=== PATIENT | female | born 1930 | race Caucasian/White ===

== ENCOUNTER 2016-08-08 20:05 | Observation (INO) | payer OTHER ==
--- NOTE | ~2016-08-08 | HP ---
History And Physical [place] [id number] [facility] [place]. [address] NAME: MARYLOU WEINSTEIN V : 32 STATUS : ADM Lynette PAT#: [id number] AGE: 86 ADM/REG DATE : 08/08/16 MR#: [id number] REPORT SERV DATE: 08/09/16 DICTATED BY: MARE WALKER DATE: 08/09/16 REPORT STATUS : Draft TRANSCRIBED BY: MODL DATE: 08/09/16 DATE OF ADMISSION: 08/08/2016 PRIMARY CARE PROVIDER: Harsha Nieves M.D. METAL ENGRAVER: Kacie Malloy M.D. CHIEF COMPLAINT: Atypical chest pain. HISTORY OF PRESENT ILLNESS: A very pleasant 86-year-old white female with no known history of CAD, but followed by Dr. Malloy for NICM with most recent EF of 55% in 08/2015. The patient states that on 08/08/2016 around 1730 hours, she experienced "real bad pain" indicating her mid chest and near her xiphoid while sitting on the cough. She describes associated shortness of breath, nausea, diaphoresis, and dizziness. She denies any belching. At its most intensive the chest pain was rated at 10/10. At the time of interview in the CPOU she is pain-free. The episode lasted approximately 10 minutes in duration. She did take one full dose aspirin prior to coming to the hospital. She was driven here by family members. She denies any exertional component. No stressful argument or confrontational interaction. The patient denies any personal history of myocardial infarction, stroke, DVT, or pulmonary embolus. The patient treated for the flu one month ago. Denies palpitations. No syncopal episodes. Denies PND or orthopnea. PAST MEDICAL HISTORY: 1. NICM with an EF of 55% by echo in 08/2015. 2. Hypertension. 3. Cholesterol, followed by PCP and reportedly "good.". 4. AODM. 5. Hypothyroid, on replacement. 6. Anxiety. 7. GERD. 8. COPD. 9. Sleep apnea, on 2 L nasal cannula at night. 10.Remote tobacco abuse. PAST SURGICAL HISTORY: 1. Cholecystectomy. 2. Hysterectomy. 3. Bladder tack. 4. Appendectomy. SOCIAL HISTORY: She is with three children. 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 Does not have an exercise routine. Quit smoking in 1980. Denies alcohol or illicits. FAMILY HISTORY: Mother of a heart attack at 76 with a history of congestive heart History And Physical [place] [id number] [facility] [place]. [address] NAME: MARYLOU WEINSTEIN V : 32 STATUS : ADM Lynette PAT#: [id number] AGE: 86 ADM/REG DATE : 08/08/16 MR#: [id number] REPORT SERV DATE: 08/09/16 DICTATED BY: MARE WALKER DATE: 08/09/16 REPORT STATUS : Draft TRANSCRIBED BY: MODAmerica DATE: 08/09/16 failure. Otherwise, no embolic events reported in first-degree relatives. REVIEW OF SYSTEMS: A 14-point review of systems performed, significant for HPI including home blood sugars of 90 to 120 and the patient does not check her blood pressure. Otherwise, complete review of systems obtained and negative. ALLERGIES: NO KNOWN DRUG ALLERGIES. HOME MEDICATIONS: 1. Proventil p.r.n. 2. Albuterol nebulizer four times daily p.r.n. 3. Amlodipine 5 mg daily. 4. Aspirin 325 mg daily. 5. Coreg 25 mg twice daily. 6. Chlorthalidone 25 mg daily. 7. Celexa 20 mg nightly. 8. Lanoxin 125 mcg daily. 9. Joceline 180 mg daily. 10.Flonase spray p.r.n. 11.Breo Ellipta 10/ daily. 12.Lasix 40 mg with lunch. 13.Glimepiride 4 mg daily. 14.Levothyroxine 125 mcg daily. 15.Metformin 1000 mg twice daily. 16.Prilosec 40 mg nightly. 17.Nasal spray p.r.n. 18.Aldactone 12.5 mg Thursday, Thursday, and Thursday at lunch. 19.Spiriva one capsule nightly. PHYSICAL EXAMINATION: BLOOD PRESSURE: Bilateral blood pressures on arrival, right 160/72, left 153/70, this morning 146/64. PULSE: 57. RESPIRATORY RATE: 16. TEMPERATURE: 97.7. O2 saturation 97% on room air. HEIGHT: 5 feet 2 inches. WEIGHT: 186 pounds. BMI: 34. GENERAL: Cooperative, in no apparent distress. HEENT: Pupils 2 mm. Sclera nonicteric. Nares patent. Moist mucous membranes. No xanthelasma. NECK: Trachea midline. No thyromegaly. No JVD. No bruits. LYMPH: No cervical lymphadenopathy. No supraclavicular lymphadenopathy. RESPIRATORY: Unlabored respirations. Breath sounds clear bilaterally to posterior auscultation. No wheezes or rhonchi. CARDIOVASCULAR: Regular rate. No murmur, rub or gallop appreciated. Extremities trace to 1+ ankle edema. Pulses 2+ bilaterally. ABDOMEN: Soft, nontender, and nondistended. Normal bowel sounds auscultated throughout. No organomegaly. SKIN: Warm and dry extremities. No pallor or cyanosis. PSYCHIATRIC: Appropriate affect. Alert and oriented x3. History And Physical [address] [address] NAME: MARYLOU WEINSTEIN V : 32 STATUS : ADM Lynette PAT#: [id number] AGE: 86 ADM/REG DATE : 08/08/16 MR#: [id number] REPORT SERV DATE: 08/09/16 DICTATED BY: MARE WALKER DATE: 08/09/16 REPORT STATUS : Draft TRANSCRIBED BY: OAPL DATE: 08/09/16 LABORATORY DATA: Troponin less than 0.02 x3. Potassium 4.5, BUN 23, creatinine 1.28, glucose 119. Magnesium 2.2. Digoxin level less than 0.1. WBC 6.7, hemoglobin 12.3, hematocrit 38.7, and platelet count 263,000. EKG sinus rhythm with nonspecific T-waves. Echo 08/2015: EF 55%. Mild pulmonary hypertension. MPI 08/2015: No ischemia. ASSESSMENT AND PLAN: 1. Chest pain in patient with multiple risk factors. The patient has been observed in the CPOU overnight to rule out myocardial infarction with serial enzymes and serial EKGs, and held n.p.o. We will proceed with MPI today most likely vasodilators stress test. The patient will be discharged home if low risk, no ischemia. If anything suggestive of ischemia, Cardiology referral will be initiated. Otherwise, the patient will be asked to follow up her PCP and Dr. Malloy as warranted or previously scheduled. 2. Nonischemic cardiomyopathy with the ejection fraction 55% in 08/2015. Continue home medications. 3. Hypertension. Monitor blood pressure and continue home medications. 4. Adult-onset diabetes mellitus. Hold metformin level 1 sliding scale correction. 5. Chronic obstructive pulmonary disease. Continue home medications as warranted. BRAYDEN/MODL Mare Walker MSN, [facility] CONSULTANT-BC / [id number] CC: Mare Walker MSN, [employer] CONSULTANT-BC Abe Black M.D.
[2016-08-08 19:25] LABS: BASOPHILS 0.3 %; BASOPHILS ABSOLUTE 0.02 10/3/uL (0.0-0.16); EOSINOPHILS 6.7 %; EOSINOPHILS ABSOLUTE 0.45 10/3/uL (0.0-0.53); HEMATOCRIT 38.7 % (36.0-48.0); HEMOGLOBIN 12.3 g/dL (12.0-16.0); IMMATURE GRANULOCYTES 0.1 %; IMMATURE GRANULOCYTES ABSOLUTE 0.01 10/3/uL (0.0-0.11); LYMPHOCYTES 18.3 %; LYMPHOCYTES ABSOLUTE 1.22 10/3/uL (0.67-4.30); MEAN CORPUS HGB CONC 31.8 g/dL (32.0-36.0); MEAN CORPUSCULAR HEMOGLOB 27.5 pg (26.0-34.0); MEAN CORPUSCULAR VOLUME 86.4 fL (80-100); MEAN PLATELET VOLUME 9.3 fL (9.2-13.0); MONOCYTES 10.8 %; MONOCYTES ABSOLUTE 0.72 10/3/uL (0.21-1.20); NEUTROPHILS 63.8 %; NEUTROPHILS ABSOLUTE 4.26 10/3/uL (2.02-8.40); PLATELET COUNT 263 10/3/uL (150-400); RBC DISTRIBUTION WIDTH 15.6 % (12.0-16.0); RED CELL COUNT 4.48 10/6/uL (4.0-5.6); WHITE BLOOD CELLS 6.7 10/3/uL (4.5-10.5)
[2016-08-08 19:26] LABS: MANUAL DIFF NO %
[2016-08-08 19:34] LABS: PARTIAL THROMBO TIME 25.8 SEC (22.5-37.2)
[2016-08-08 19:41] LABS: BUN (BLOOD UREA NITROGEN) 23 MG/DL (6-23); CALCIUM, SERUM 9.3 MG/DL (8.5-10.4); CHEST PAIN PROFILE TAT 0 Hrs 20 Mins; CHLORIDE, SERUM 105 MMOL/L (96-112); CO2 (CARBON DIOXIDE) 31 MMOL/L (24-34); CREATININE 1.28 MG/DL (0.55-1.02); GFR AFRICAN AMERICAN 44 ML/MIN (>=60); GFR NON AFRICAN AMERICAN 38 ML/MIN (>=60); GLUCOSE, SERUM 119 MG/DL (60-99); POTASSIUM, SERUM 4.5 MMOL/L (3.5-5.3); SODIUM, SERUM 140 MMOL/L (135-148); TROPONIN I <0.02 NG/ML (<0.05)
[2016-08-08 20:24] LABS: DIGOXIN < 0.1 NG/ML (0.8-2.0)
[2016-08-08] MEDS ORDERED: L40 PO (20:26)
[2016-08-08] MEDS ORDERED: BREO ELLIPTA INH (20:27)
[2016-08-08] MEDS ORDERED: LEVOTHYROXIN125 MCG PO (20:27)
[2016-08-08] MEDS ORDERED: SPIRIVA INH (20:27)
[2016-08-08] MEDS ORDERED: NORV5 PO (20:28)
[2016-08-08] MEDS ORDERED: HYGROTON 25 MG25 MG PO (20:28)
[2016-08-08] MEDS ORDERED: FLONASE NAS (20:28)
[2016-08-08] MEDS ORDERED: LAN125 PO (20:28)
[2016-08-08] MEDS ORDERED: SPIRO25 PO (20:29)
[2016-08-08] MEDS ORDERED: CELEXA20 PO (20:29)
[2016-08-08] MEDS ORDERED: FORTAMET1000 MG PO (20:30)
[2016-08-08] MEDS ORDERED: PROVHFA INH (20:30)
[2016-08-08] MEDS ORDERED: PRILOSEC40 MG PO (20:30)
[2016-08-08] MEDS ORDERED: AMARYL4 PO (20:30)
[2016-08-08] MEDS ORDERED: COREG25 PO (20:31)
[2016-08-08] MEDS ORDERED: ASA5GR PO (20:31)
[2016-08-08] MEDS ORDERED: ALLEGRA180 PO (20:32)
[2016-08-08] MEDS ORDERED: ALBUTEROL0.083 % INH (20:34)
[2016-08-08] MEDS ORDERED: OCEAN NAS (20:35)
== END 2016-08-09 14:04 | disposition home or self-care (01) ==
LOC: ER 20:05 → CDU1 21:58
PROVIDERS: Emergency Medicine
DX: R07.9 Chest pain, unspecified (principal); I42.9 Cardiomyopathy, unspecified; I10 Essential (primary) hypertension; E11.9 Type 2 diabetes mellitus without complications; J44.9 Chronic obstructive pulmonary disease, unspecified; E03.9 Hypothyroidism, unspecified; F41.9 Anxiety disorder, unspecified; K21.9 Gastro-esophageal reflux disease without esophagitis; G47.30 Sleep apnea, unspecified; Z90.49 Acquired absence of other specified parts of digestive tract; Z90.710 Acquired absence of both cervix and uterus; Z98.890 Other specified postprocedural states; Z87.891 Personal history of nicotine dependence; Z79.82 Long term (current) use of aspirin; Z79.899 Other long term (current) drug therapy
CPT/HCPCS: 71010; 78452; 80048; 80162; 82962; 83735; 84484; 85025; 85610; 85730; 93005; 93017; 93308; 99285; A9270-GY; A9502; G0378; J2785